=== PATIENT | female | born 1995 | race Two or more races ===

== ENCOUNTER 2023-11-19 22:55 | Emergency (ER) | payer MEDICAID, OTHER ==
[~2023-11-19] VITALS: Ht 172.7 cm; Wt 82.0 kg
[2023-11-19 23:01] VITALS: BP 127/84; PULSE 91; RESP 16; O2SAT 95
== END 2023-11-20 00:54 | disposition left against medical advice (07) ==
LOC: ER 22:55
DX: M54.2 Cervicalgia (principal); M54.50 Low back pain, unspecified; Z53.21 Procedure and treatment not carried out due to patient leaving prior to being seen by health care provider; V43.52XA Car driver injured in collision with other type car in traffic accident, initial encounter; Y93.89 Activity, other specified; Y92.89 Other specified places as the place of occurrence of the external cause; Y99.8 Other external cause status